=== PATIENT | male | born 1960 | race Caucasian/White ===

== ENCOUNTER 2016-06-25 02:16 | Emergency (ER) | payer OTHER ==
[2012-09-16 12:53] VITALS: BMI 32.7
== END 2016-06-25 03:30 | disposition home or self-care (01) ==
LOC: D.ER 02:16
DX: T78.40XA Allergy, unspecified, initial encounter (principal); X58.XXXA Exposure to other specified factors, initial encounter; C67.9 Malignant neoplasm of bladder, unspecified; I10 Essential (primary) hypertension; Z95.0 Presence of cardiac pacemaker

== ENCOUNTER 2016-10-31 19:09 | Emergency (ER) | payer OTHER ==
[2012-09-16 12:53] VITALS: BMI 32.7
== END 2016-10-31 21:04 | disposition left against medical advice (07) ==
LOC: D.ER 19:09
DX: R05 Cough (principal)

== ENCOUNTER 2016-11-03 14:46 | Emergency (ER) | payer OTHER ==
[2012-09-16 12:53] VITALS: BMI 32.7
[2016-11-03 16:27] LABS: BASOPHILS 0.2 % (0-2); EOSINOPHILS 1.5 % (0-7); HEMATOCRIT 47.3 % (42.0-54.0); HEMOGLOBIN 16.3 g/dL (13.5-17.5); IMMATURE GRANULOCYTES 0.6 % (0-5); LYMPHOCYTES 32.2 % (15-50); MCHC 34.5 g/dL (31.0-37.0); MCV 92.9 fL (80.0-100.0); MEAN PLATELET VOLUME 9.2 fL (7.4-10.4); MONOCYTES 13.1 % (2-11); NEUTROPHILS 52.4 % (40-80); PLATELET COUNT 267 10x3/uL (130-400); RBC 5.09 10x6/uL (4.20-6.10); RDW 12.4 % (11.5-14.5); WBC 10.2 10x3/uL (4.8-10.8)
[2016-11-03 16:32] LABS: ALBUMIN 4.2 g/dL (3.4-5.0); ALKALINE PHOSPHATASE 81 U/L (46-116); ALT (SGPT) 43 U/L (10-68); BILIRUBIN - TOTAL 0.45 mg/dL (0.2-1.3); CALC OSMOLALITY 270 mosm/kg (275-300); CALCIUM 9.7 mg/dL (8.5-10.1); CARBON DIOXIDE 29.1 mmol/L (21.0-32.0); CHLORIDE - SERUM 97 mmol/L (98-107); CREATININE - SERUM 1.3 mg/dL (0.6-1.3); POTASSIUM - SERUM 4.5 mmol/L (3.5-5.1); PROTEIN - SERUM 8.3 g/dL (6.4-8.2); SODIUM 134 mmol/L (136-145); UREA NITROGEN 19 mg/dL (7-18); eGFR NON AFRICAN AMERICAN 61 mL/min (90-120)
[2016-11-03 16:33] LABS: GLUCOSE 112 mg/dL (74-106)
[2016-11-03 16:35] LABS: TROPONIN-I < 0.017 ng/mL (0.000-0.060)
== END 2016-11-03 17:45 | disposition home or self-care (01) ==
LOC: D.ER 14:46
PROVIDERS: Emergency Medicine; Physician Assistant Medical
DX: R00.0 Tachycardia, unspecified (principal); Z87.891 Personal history of nicotine dependence; Z95.0 Presence of cardiac pacemaker; I10 Essential (primary) hypertension

== ENCOUNTER 2017-11-14 17:38 | Emergency (ER) | payer OTHER ==
[~2017-11-14] VITALS: Ht 175.3 cm; Wt 124.1 kg
[2017-11-14 17:45] VITALS: Ht 175.3 cm; Wt 124.1 kg
[2017-11-14] MEDS ORDERED: COUMADIN5 MG PO (17:46)
[2017-11-14] MEDS ORDERED: ATIVAN1 MG PO (17:46)
[2017-11-14] MEDS ORDERED: PRINIVIL20 MG PO (17:46)
[2017-11-14] MEDS ORDERED: LOPRESSOR25 MG (17:47)
[2017-11-14 18:01] LABS: BASOPHILS 0.2 % (0-2); EOSINOPHILS 1.1 % (0-7); HEMATOCRIT 44.7 % (42.0-54.0); HEMOGLOBIN 15.6 g/dL (13.5-17.5); IMMATURE GRANULOCYTES 0.8 % (0-5); MCH 32.2 pg (26.0-34.0); MCHC 34.9 g/dL (31.0-37.0); MCV 92.4 fL (80.0-100.0); MEAN PLATELET VOLUME 9.3 fL (7.4-10.4); MONOCYTES 13.5 % (2-11); NEUTROPHILS 60.4 % (40-80); PLATELET COUNT 264 10x3/uL (130-400); RBC 4.84 10x6/uL (4.20-6.10); RDW 12.4 % (11.5-14.5); WBC 12.2 10x3/uL (4.8-10.8)
[2017-11-14 18:20] LABS: ALBUMIN 3.8 g/dL (3.4-5.0); ALKALINE PHOSPHATASE 75 U/L (46-116); ALT (SGPT) 43 U/L (10-68); BILIRUBIN - TOTAL 0.56 mg/dL (0.2-1.3); CALC OSMOLALITY 270 mosm/kg (275-300); CHLORIDE - SERUM 99 mmol/L (98-107); CREATININE - SERUM 1.9 mg/dL (0.6-1.3); POTASSIUM - SERUM 4.2 mmol/L (3.5-5.1); PROTEIN - SERUM 7.8 g/dL (6.4-8.2); SODIUM 131 mmol/L (136-145); UREA NITROGEN 23 mg/dL (7-18); eGFR NON AFRICAN AMERICAN 39 mL/min (90-120)
[2017-11-14 18:25] LABS: GLUCOSE 175 mg/dL (74-106)
[2017-11-14 18:32] LABS: CKMB 1.8 U/L (0.0-3.6)
[2017-11-14 18:33] LABS: APTT 51.9 SECONDS (22.8-39.4); INR 2.63 (0.85-1.17); PROTIME 27.4 SECONDS (11.6-15.0)
[2017-11-14 18:34] LABS: LIPASE 1955 U/L (73-393); TROPONIN-I < 0.017 ng/mL (0.000-0.060)
[2017-11-14] MEDS ORDERED: ZOFRAN ODT4 MG/UDTAB PO (21:34)
[2017-11-14] MEDS ORDERED: TYLENOL W/CODEI1 TAB PO (21:34)
[2017-11-14 22:18] VITALS: BP 92/51
== END 2017-11-14 22:18 | disposition home or self-care (01) ==
LOC: D.ER 17:38
PROVIDERS: Family Medicine
DX: K85.90 Acute pancreatitis without necrosis or infection, unspecified (principal); R11.2 Nausea with vomiting, unspecified; I10 Essential (primary) hypertension; R00.0 Tachycardia, unspecified; Z95.0 Presence of cardiac pacemaker

== ENCOUNTER 2017-11-18 20:11 | Emergency (ER) | payer OTHER ==
[~2017-11-18] VITALS: Ht 175.3 cm; Wt 123.8 kg
[~2017-11-18 20:11] MED LIST: ATIVAN1 MG PO; COUMADIN5 MG PO; LOPRESSOR25 MG; PRINIVIL20 MG PO; TYLENOL W/CODEI1 TAB PO; ZOFRAN ODT4 MG/UDTAB PO
[2017-11-18 20:20] VITALS: Ht 175.3 cm; Wt 123.8 kg
[2017-11-18] MEDS ORDERED: CHERATUSSIN AC473 ML PO (23:12)
[2017-11-18] MEDS ORDERED: CLARITIN 10 MG10 MG PO (23:12)
[2017-11-19 00:04] VITALS: BP 119/82
== END 2017-11-19 00:05 | disposition home or self-care (01) ==
LOC: D.ER 20:11
DX: J06.9 Acute upper respiratory infection, unspecified (principal); R09.89 Other specified symptoms and signs involving the circulatory and respiratory systems; I10 Essential (primary) hypertension; Z95.0 Presence of cardiac pacemaker

== ENCOUNTER 2019-02-19 10:52 | Emergency (ER) | payer OTHER ==
[~2019-02-19] VITALS: Ht 170.2 cm; Wt 124.1 kg
[~2019-02-19 10:52] MED LIST changes: +CHERATUSSIN AC473 ML PO; +CLARITIN 10 MG10 MG PO
[2019-02-19 10:57] VITALS: BP 139/79; Ht 170.2 cm; Wt 124.1 kg
[2019-02-19 11:31] LABS: BASOPHILS 0.3 % (0-2); EOSINOPHILS 2.9 % (0-7); HEMATOCRIT 45.3 % (42.0-54.0); HEMOGLOBIN 15.6 g/dL (13.5-17.5); IMMATURE GRANULOCYTES 0.3 % (0-5); LYMPHOCYTES 40.8 % (15-50); MCH 32.6 pg (26.0-34.0); MCHC 34.4 g/dL (31.0-37.0); MCV 94.6 fL (80.0-100.0); MEAN PLATELET VOLUME 9.3 fL (7.4-10.4); NEUTROPHILS 42.7 % (40-80); RBC 4.79 10x6/uL (4.20-6.10); WBC 7.2 10x3/uL (4.8-10.8)
[2019-02-19 11:33] LABS: CALC OSMOLALITY 274 mosm/kg (275-300); CARBON DIOXIDE 24.7 mmol/L (21.0-32.0); CHLORIDE - SERUM 102 mmol/L (98-107); CREATININE - SERUM 1.1 mg/dL (0.6-1.3); POTASSIUM - SERUM 3.9 mmol/L (3.5-5.1); SODIUM 136 mmol/L (136-145); UREA NITROGEN 15 mg/dL (7-18); eGFR NON AFRICAN AMERICAN 73 mL/min (90-120)
[2019-02-19 11:34] LABS: GLUCOSE 127 mg/dL (74-106)
[2019-02-19 11:50] LABS: ALBUMIN 3.8 g/dL (3.4-5.0); ALKALINE PHOSPHATASE 90 U/L (46-116); ALT (SGPT) 44 U/L (10-68); BILIRUBIN - TOTAL 0.36 mg/dL (0.2-1.3); CKMB 1.1 U/L (0.0-3.6); CREATINE KINASE 110 UL (21-232); PRO BNP 41 pg/mL (0-125); PROTEIN - SERUM 8.1 g/dL (6.4-8.2); TROPONIN-I < 0.017 ng/mL (0.000-0.060)
[2019-02-19 11:55] LABS: PLATELET COUNT 195 10x3/uL (130-400)
[2019-02-19] MEDS ORDERED: BACLOFEN20 M1 PO (12:46)
[2019-02-19] MEDS ORDERED: VOLTAREN75 MG PO (12:46)
--- NOTE | 2019-02-20 14:08 | CN ---
PATIENT NAME:YELENA CURRIE MEDICAL RECORD: [id number] : 62 LOCATION:[facility] ADMIT DATE: ACCOUNT: [id number] CONSULTING PHYSICIAN: SHERIE URIBE MD REFERRING PHYSICIAN: MARVA BISHOP MD DATE OF CONSULTATION: 02/19/2019 ADMITTING DIAGNOSES: 1. Chest pain, atypical. 2. Hypertension. HISTORY OF PRESENT ILLNESS: He presents with chest pain since Monday. It is definitely positional, worse with moving his left arm, worse with taking a deep breath. It is sharp in nature. This is not anginal. He has no cardiac history. History of hypertension. FAMILY HISTORY: Positive for hypertension. Negative for coronary artery disease. SOCIAL HISTORY: Lives and works in the [place] area. Denies smoking or ETOH. REVIEW OF SYSTEMS: The patient reports easy bruising but reports no swollen glands. The patient reports no fever, no night sweats, no significant weight gain, no significant weight loss. No significant exercise tolerance. The patient reports no dry eyes, no irritation, no vision change. Patient reports no difficulty hearing and no ear pain. Patient reports no frequent nose bleeds or nose and sinus problems. Patient reports no arm pain on exertion. No shortness of breath while lying down. No history of heart murmur. Patient reports no cough, no wheezing or coughing up blood. Patient reports no abdominal pain, no vomiting. Normal appetite. No diarrhea and not vomiting blood. No nausea and no constipation. Patient reports no incontinence. No difficulty urinating. No hematuria. No increased frequency. Patient reports no muscle aches. No weakness, no arthralgias, no back pain. No swelling of the extremities. Patient reports no abnormal mole, no jaundice, no rashes. Reports no loss of consciousness. No weakness and no numbness. No seizures, dizziness, or headaches. The patient reports no depression, no sleep disturbance, feeling safe in a relationship and no alcohol abuse. Patient reports on fatigue. Reports no runny nose or sinus pressure. No itching, no hives, and no frequent sneezing. PHYSICAL EXAMINATION: CONSTITUTIONAL/GENERAL APPEARANCE: Well nourished, well developed, appears stated age. EYES: Lids and conjunctivae noninjected. No discharge. No pallor. ENT: Lips within normal limit. No cyanosis. No pallor. NECK: Carotid arteries, bilateral normal upstroke. No bruits. No thrills. No jugular venous pressure or distention. CERVICAL LYMPH NODES: Nontender. Nonenlarged. THYROID: Not enlarged. No nodules. CARDIOVASCULAR: Precordial exam, nondisplaced. No heaves or pericardial thrills. Rate and rhythm, regular. Heart sounds, normal S1, normal S2. No S3, no gallop, no rub. Systolic murmur, not heard. Diastolic murmur, not heard. RESPIRATORY: Respiratory effort, unlabored. Normal curvature. No thoracic deformity. No chest wall tenderness. Percussion, resonant. Auscultation, CONSULT REPORT [id number] YELENA CURRIE clear. No wheezes, no rales, no rhonchi. ABDOMEN: Soft, nondistended, nontender. No abdominal pain, no vomiting and normal appetite. MUSCULOSKELETAL: No joint tenderness, normal gait, normal tone. SKIN: Warm and dry. OVERALL IMPRESSION: Chest pain, musculoskeletal. No other cardiac workup or treatment is necessary at this time. TRANSINT:[id number] Voice Confirmation ID: [id number] DOCUMENT ID: [id number] SHERIE URIBE MD at 1408 CC: [id number] DICTATION DATE: 02/19/19 1204 [facility]ER: 02/19/19 1222 [facility] ER 02/19/19 [id number] [place] [address]
== END 2019-02-19 14:05 | disposition home or self-care (01) ==
LOC: D.ER 10:52
PROVIDERS: Emergency Medicine
DX: R07.89 Other chest pain (principal); I10 Essential (primary) hypertension

== ENCOUNTER 2020-10-13 19:03 | Emergency (ER) | payer BC ==
[~2020-10-13] VITALS: Ht 170.2 cm; Wt 120.5 kg
[~2020-10-13 19:03] MED LIST changes: +BACLOFEN20 M1 PO; +VOLTAREN75 MG PO
[2020-10-13 19:34] VITALS: Ht 170.2 cm; Wt 120.5 kg
[2020-10-13] MEDS ORDERED: VOLTAREN75 MG PO (20:10)
[2020-10-13] MEDS ORDERED: ZANAFLEX4 MG PO (20:10)
[2020-10-13] MEDS ORDERED: PREDNISONE50 MG PO (20:10)
[2020-10-13 22:05] VITALS: BP 111/62
== END 2020-10-13 22:05 | disposition home or self-care (01) ==
LOC: D.ER 19:03
DX: M54.12 Radiculopathy, cervical region (principal); M54.2 Cervicalgia; I10 Essential (primary) hypertension; Z95.0 Presence of cardiac pacemaker